=== PATIENT | female | born 1975 | race Two or more races ===

== ENCOUNTER 2019-04-07 05:41 | Emergency (ER) | payer MEDICAID ==
[~2019-04-07] VITALS: Ht 165.1 cm; Wt 100.0 kg
[2019-04-07] MEDS ORDERED: MORPHINE SULFATE 4 MG/ML CPJ (NOT FOR IM USE) IV STA (06:21)
[2019-04-07 06:41] LABS: BASOPHILS % 0.8 % (0.0-2.0); EOSINOPHILS % 1.5 % (0.0-5.0); HEMATOCRIT. 23.6 % (36.0-48.0); HEMOGLOBIN. 7.3 g/dL (12.0-16.0); LYMPHOCYTES % 33.4 % (20.0-50.0); MEAN CORPUSCULAR HEMOGLOBIN 20.5 pg (28.0-32.0); MEAN CORPUSCULAR VOLUME 66.8 fL (81.0-99.0); MEAN PLATELET VOLUME 8.8 fl (7.4-10.4); MONOCYTES % 7.4 % (2.0-8.0); NEUTROPHILS % 56.9 % (40.0-76.0); PLATELET 101 x1000/uL (130-400); RED BLOOD CELL COUNT 3.54 mill/uL (4.2-5.4); RED CELL DISTRIBUTION WIDTH 23.9 % (11.6-14.6)
[2019-04-07 06:46] LABS: CHLORIDE 109 mEq/L (98-107)
[2019-04-07] MEDS ORDERED: DIPHENHYDRAMINE 50MG/ML VIAL IV ONE (07:00)
[2019-04-07 07:45] LABS: PLATELET ESTIMATE DECREASED
[2019-04-07 08:30] VITALS: BP 129/72
== END 2019-04-07 08:37 | disposition home or self-care (01) ==
LOC: ER 05:41
DX: M79.18 Myalgia, other site (principal); E11.9 Type 2 diabetes mellitus without complications; I10 Essential (primary) hypertension; Z85.6 Personal history of leukemia; Z85.9 Personal history of malignant neoplasm, unspecified; Z88.6 Allergy status to analgesic agent; Z90.89 Acquired absence of other organs
CPT/HCPCS: 36415; 80053; 85025; 96374; 96375; 99283; J1200; J2270